=== PATIENT | female | born 1965 | race Caucasian/White ===

== ENCOUNTER 2023-10-28 10:24 | Emergency (ER) | payer OTHER, MEDICARE, SELFPAY ==
[2023-10-28 10:34] VITALS: BP 174/96; PULSE 94; RESP 20; TEMP 36.7; O2SAT 100
[2023-10-28 10:40] VITALS: BP 174/96; PULSE 94; RESP 20; TEMP 36.7; O2SAT 100
--- NOTE | 2023-10-28 11:02 | ED.DIZZY ---
HPI - Dizziness General Chief Complaint: Ear Stated Complaint: dizzy/ears Time Seen by Provider: 10/28/23 10:43 Source: patient and RN notes reviewed Mode of arrival: ambulatory Limitations: no limitations History of Present Illness HPI Narrative: Patient presents today with dizziness x2 weeks, worse when she sits up, bends over, and with head movement. She also reports some right ear pressure with occasional sharp pains as well as 2 day history of double vision. She denies any additional symptoms to include nausea, vomiting, chest pain, shortness of breath, numbness or tingling, URI symptoms. She has been taking ibuprofen, meclizine without relief. History of seizures and migraines. States she can have some double vision that occurs right before she has seizures, but has not had a seizure in over 6 months. Related Data Home Medications Medication Instructions Recorded Confirmed atenolol 50 mg-chlorthalidone 25 tablet 10/28/23 mg tablet baclofen 10 mg tablet mg 10/28/23 cariprazine 1.5 mg capsule mg 10/28/23 (Olesya) cholecalciferol (vitamin D3) 125 10/28/23 mcg (5,000 unit) capsule divalproex 250 mg tablet,delayed mg PO 10/28/23 release gabapentin 300 mg capsule mg 10/28/23 levothyroxine 137 mcg tablet mcg 10/28/23 naratriptan 2.5 mg tablet mg 10/28/23 ondansetron 4 mg disintegrating mg 10/28/23 tablet oxcarbazepine 600 mg tablet mg 10/28/23 potassium chloride 10 mEq meq PO 10/28/23 tablet,extended release rizatriptan 10 mg tablet mg 10/28/23 rosuvastatin 40 mg tablet mg 10/28/23 venlafaxine 150 mg mg PO 10/28/23 capsule,extended release 24 hr Allergies Allergy/AdvReac Type Severity Reaction Status Date / Time Sulfa (Sulfonamide Allergy Verified 06/30/12 13:05 Antibiotics) Review of Systems Review of Systems: CONSTITUTIONAL: Denies body aches, fever, chills, or sweats. EYES: Denies redness, or discharge.+ double vision ENT: Denies rhinorrhea, congestion, sore throat. + right ear pressure CARDIOVASCULAR: Denies chest pain, palpitations, or edema. RESPIRATORY: Denies cough or dyspnea. GASTROINTESTINAL: Denies abdominal pain, nausea, vomiting, or diarrhea. GENITOURINARY: Denies dysuria or hematuria. SKIN: Denies rash, itching, or wounds. MUSCULOSKELETAL: Denies back pain, joint pain, or myalgia. NEUROLOGIC: Denies headache, numbness, tingling, or weakness.+ dizziness PSYCH: Denies depression or anxiety. [facility] Past Medical History Medical History (Updated 10/28/23 @ 11:09 by Teresita Munoz, [facility], ) Hypothyroidism Migraines Seizures Comments At time of signature, I have reviewed and agree with nursing past medical, surgical, social and family history unless otherwise noted. Please see nursing chart for further information. There is no relevant family history pertinent to the presenting complaint Exam Narrative: GENERAL: Well-appearing, well-nourished, and in no acute distress. HEAD: Normocephalic, atraumatic. EYES: EOMI. PERRL. No nystagmus, no redness or drainage. Conjunctivae normal. ENT: Mucous membranes pink and moist. Nares clear. No rhinorrhea. TMs normal bilaterally. Throat normal. Uvula midline. NECK: Normal AROM. Supple. No lymphadenopathy. CHEST: No respiratory distress. Clear to auscultation. HEART: Regular rate and rhythm. No murmur appreciated. Normal peripheral pulses. EXTREMITIES: Normal range of motion. No edema. Hand claim manager equal and strong. Dorsiflexion and plantar flexion equal and strong against resistance. SKIN: Warm, dry, no rash. Capillary refill normal. Normal skin turgor. NEURO: Alert and oriented x3. Gait steady. No drift. Unsteady with heel to guy. Finger nose normal. PSYCH: Normal affect. No signs of depression or anxiety. Course Course Emergency Course: R 20/50, L 20/25 with glasses. Level of Care: Express Care Visit Vital Signs Vital signs: Vital Signs Temperature 98.0 F 10/28/23 10:
== END 2023-10-28 11:15 | disposition left against medical advice (07) ==
PROVIDERS: Emergency Provider Nurse Practitioner; PCP Internal Medicine
DX: R42 Dizziness and giddiness (principal); H53.2 Diplopia; E03.9 Hypothyroidism, unspecified
CPT/HCPCS: 99212; G0463

== ENCOUNTER 2024-04-23 13:54 | Emergency (ER) | payer OTHER, MEDICARE, SELFPAY ==
--- NOTE | ~2024-04-23 | XR_ITS ---
EXAMINATION: XR foot RT min 3V DATE: 04/23/2024 14:34 INDICATION: Right foot pain. TECHNIQUE: 4 views of right foot were obtained. COMPARISON: None. FINDINGS: There is an oblique fracture of neck of fourth metatarsal. The distal fracture fragment dem onstrates 2 mm lateral displacement. Joint spaces are normal. IMPRESSION: 1. Oblique fracture of neck of fourth metatarsal. Reviewed, dictated and finalized at location A.
[2024-04-23 14:04] VITALS: BP 147/91; PULSE 96; RESP 20; TEMP 37.2; O2SAT 98
[2024-04-23 14:16] VITALS: BP 147/91; PULSE 96; RESP 20; TEMP 37.2; O2SAT 98
--- NOTE | 2024-04-23 14:37 | ED.LOWEXIN ---
HPI - Extremity Injury (Lower) General Chief Complaint: Extremity Injury, Lower Stated Complaint: Right foot injury Time Seen by Provider: 04/23/24 14:37 Source: patient, RN notes reviewed and old records reviewed Mode of arrival: ambulatory Limitations: no limitations History of Present Illness HPI Narrative: 59-year-old female presents to the [facility] with right pain after falling in middle of the night and landing on her foot. Bruising noted to the dorsal aspect. Tenderness over metatarsals 3 and 4 Positive pedal pulse. Capillary refill under 2 seconds. Full range of motion of the ankle and able to move toes without issue Related Data Home Medications Medication Instructions Recorded Confirmed atenolol 50 mg-chlorthalidone 25 1 tablet PO DAILY 10/28/23 04/23/24 mg tablet baclofen 10 mg tablet 10 mg PO DAILY 10/28/23 04/23/24 cariprazine 1.5 mg capsule 1.5 mg PO DAILY 10/28/23 04/23/24 (Vraylar) cholecalciferol (vitamin D3) 125 125 mcg PO DAILY 10/28/23 04/23/24 mcg (5,000 unit) capsule divalproex 250 mg tablet,delayed 250 mg PO DAILY 10/28/23 04/23/24 release gabapentin 300 mg capsule 600 mg PO DAILY 10/28/23 04/23/24 levothyroxine 137 mcg tablet 137 mcg PO DAILY 10/28/23 04/23/24 naratriptan 2.5 mg tablet 2.5 mg PO Q72H 10/28/23 04/23/24 oxcarbazepine 600 mg tablet 1,200 mg PO BID 10/28/23 04/23/24 potassium chloride 10 mEq 10 meq PO DAILY 10/28/23 04/23/24 tablet,extended release rizatriptan 10 mg tablet 10 mg PO DAILY 10/28/23 04/23/24 rosuvastatin 40 mg tablet 40 mg PO DAILY 10/28/23 04/23/24 venlafaxine 150 mg 150 mg PO DAILY 10/28/23 04/23/24 capsule,extended release 24 hr albuterol sulfate 90 mcg/actuation 2 puff inhalation Q4-6H PRN 04/23/24 04/23/24 aerosol inhaler Shortness Of Breath Or Wheezing ubrogepant 100 mg tablet (Ubrelvy) 100 mg PO Q72H 04/23/24 04/23/24 Allergies Allergy/AdvReac Type Severity Reaction Status Date / Time Sulfa (Sulfonamide Allergy Rash Verified 04/23/24 14:16 Antibiotics) Review of Systems Review of Systems: All systems reviewed & are unremarkable except as noted in HPI and below Constitutional: Constitutional: Reports no additional constitutional complaints Eyes: Eyes: Reports no additional eye complaints ENT: Reports system reviewed and no additional complaints, except as documented Cardiovascular: Cardiovascular: Reports no additional cardiovascular complaints, Denies chest pain and Denies dyspnea Respiratory: Respiratory: Reports no additional respiratory complaints, Denies chest congestion, Denies cough and Denies dyspnea Gastrointestinal: Gastrointestinal: Reports no additional gastrointestinal complaints, Denies abdominal pain, Denies nausea and Denies vomiting Musculoskeletal: Musculoskeletal: Reports as per HPI Integumentary/Breasts: Skin/Breast: Reports system reviewed and no additional complaints, except as docu Neurologic: Reports system reviewed and no additional complaints, except as documented Psychiatric: Psychiatric: Reports no additional psychiatric complaints Allergic/Immunologic: Allergic/Immunologic: Reports no additional allergic/immunologic complaints PMFSH Past Medical History Medical History Hypothyroidism Migraines Seizures Comments At the time of my signature, I reviewed and agree with the nursing past medical, surgical, social, and family history. There is no relevant family history pertinent to the patient complaint. Exam Const: General: cooperative, healthy appearing, comfortable, no acute distress, well developed, alert and well nourished Nutritional Appearance: well nourished Orientation/consciousness: patient oriented x3 Limitations: no limitations HENMT: Head: normal to inspection Ears: hearing grossly normal bilaterally and external ears normal Face/Nose/Sinus: Normal external nose present, Normal nares present, Normal nasal mucous membranes and
== END 2024-04-23 15:25 | disposition home or self-care (01) ==
PROVIDERS: Emergency Provider Nurse Practitioner; PCP Internal Medicine
DX: S92.341A Displaced fracture of fourth metatarsal bone, right foot, initial encounter for closed fracture (principal); W19.XXXA Unspecified fall, initial encounter; E03.9 Hypothyroidism, unspecified; G40.909 Epilepsy, unspecified, not intractable, without status epilepticus
CPT/HCPCS: 29515; 73630; 99214; G0463